=== PATIENT | female | born 1940 | race Caucasian/White ===

== ENCOUNTER 2017-08-27 18:13 | Inpatient (IN) | payer MEDICARE, MEDICAID ==
[~2017-08-27] VITALS: Ht 170.2 cm; Wt 65.1 kg
[~2017-08-27 18:13] MED LIST: ACET325T14 PO; ARIP10TA33 PO; LISI40TA PO; TEMA15CA6 PO
[2017-08-27] MEDS ORDERED: SODIUM CHLORIDE 0.9% 1,000 ML IV ONE (18:25)
[2017-08-27] MEDS ORDERED: SODIUM CHLORIDE FLUSH 10ML SYR IVF ONE (18:30)
[2017-08-27] MEDS ORDERED: SODIUM CHLORIDE 0.9% 1,000ML IVBOLUS ONE (18:30)
[2017-08-27] MEDS ORDERED: PLEASE ENTER HEIGHT AND WEIGHT MC SCH (19:00)
[2017-08-27 19:04] LABS: BASOPHILS # (AUTO) 0.09 x10^3/uL (0-0.1); BASOPHILS % (AUTO) 1 % (0-1); EOSINOPHILS # (AUTO) 0.35 x10^3/uL (0-0.4); EOSINOPHILS % (AUTO) 4 % (1-7); LYMPHOCYTES # (AUTO) 2.67 x10^3/uL (1-3.4); LYMPHOCYTES % (AUTO) 27 % (22-44); MD NO; MEAN CORPUSCULAR HEMOGLOBIN 31.7 pg (27.0-34.8); MEAN CORPUSCULAR HGB CONC 33.6 g/dL (32.4-35.8); MEAN CORPUSCULAR VOLUME 94.4 fL (80-100); MONOCYTES % (AUTO) 7 % (2-9); NEUTROPHILS # (AUTO) 6.08 x10^3/uL (1.8-6.8); NEUTROPHILS % (AUTO) 62 % (42-75); PLATELET COUNT 285 x10^3/uL (130-400); RED BLOOD COUNT 3.43 x10^6/uL (3.82-5.3); RED CELL DISTRIBUTION WIDTH 16.1 % (9.6-15.2)
[2017-08-27 19:16] LABS: ALANINE AMINOTRANSFERASE 23 U/L (12-78); ALBUMIN 3.2 g/dL (3.4-5.0); ANION GAP 10 mmol/L (5-15); CALCIUM 8.5 mg/dL (8.5-10.1); CHLORIDE 108 mmol/L (98-107)
[2017-08-27 19:21] LABS: ALKALINE PHOSPHATASE 108 U/L (45-117); BILIRUBIN,TOTAL 0.4 mg/dL (0.2-1.0); T4 (THYROXINE) 10.2 mcg/dL (4.8-13.9); TROPONIN I < 0.015 ng/mL (0.000-0.045)
[2017-08-27] MEDS ORDERED: SODIUM CHLORIDE FLUSH 10ML SYR IVF PRN (20:00)
[2017-08-27] MEDS ORDERED: ONDANSETRON 2MG/ML, 2ML IVPush PRN (20:30)
[2017-08-27 20:38] VITALS: BP 100/63
[2017-08-27] MEDS: SODIUM CHLORIDE 0.9% 1,000 ML IV SCH (20:48)
[2017-08-27 20:56] VITALS: BP 100/63
[2017-08-27] MEDS: TEMAZEPAM 15 MG CAPSULE PO PRN (21:48)
[2017-08-27] MEDS: ENOXAPARIN 40 MG/0.4 ML SQ SCH (21:48)
[2017-08-27] MEDS: ACETAMINOPHEN 325 MG TABLET PO PRN (21:48)
[2017-08-28 00:31] VITALS: BP 94/56
[2017-08-28] MEDS: SODIUM CHLORIDE 0.9% 1,000 ML IV SCH ×3 (04:07→21:10)
[2017-08-28 05:07] LABS: MICROSCOPIC INDICATED
[2017-08-28 05:08] LABS: CULTURE INDICATED? YES
[2017-08-28 06:21] VITALS: BP 108/51
[2017-08-28] MEDS: ARIPIPRAZOLE 10 MG TABLET PO SCH (10:10)
[2017-08-28 12:35] VITALS: BP 117/68
[2017-08-28 13:42] LABS: CLOSTRIDIUM DIFFICILE ANTIGEN NEGATIVE; CLOSTRIDIUM DIFFICILE TOXIN NEGATIVE (Negative)
[2017-08-28] MEDS: CEFTRIAXONE PMX 1GM/50ML 50 ML IV SCH (14:20)
[2017-08-28] MEDS: ACETAMINOPHEN 325 MG TABLET PO PRN (16:38)
[2017-08-28 19:06] VITALS: BP 101/62
[2017-08-28] MEDS: ENOXAPARIN 40 MG/0.4 ML SQ SCH (19:33)
[2017-08-28] MEDS: TEMAZEPAM 15 MG CAPSULE PO PRN (22:22)
[2017-08-29 01:18] VITALS: BP 106/57
[2017-08-29] MEDS: ACETAMINOPHEN 325 MG TABLET PO PRN ×3 (04:15→19:23)
[2017-08-29] MEDS: SODIUM CHLORIDE 0.9% 1,000 ML IV SCH (04:16)
[2017-08-29 04:25] VITALS: BP 118/59
[2017-08-29] MEDS ORDERED: FUROSEMIDE 20 MG/2 ML IV ONE ×2 (05:00→09:00)
[2017-08-29 05:27] LABS: ALBUMIN 2.5 g/dL (3.4-5.0); ANION GAP 4 mmol/L (5-15); CALCIUM 7.6 mg/dL (8.5-10.1); CHLORIDE 113 mmol/L (98-107); CREATININE 0.46 mg/dL (0.55-1.02)
[2017-08-29 05:31] LABS: FREE T4 (FREE THYROXINE) 1.11 ng/dL (0.76-1.46)
[2017-08-29 05:49] LABS: BASOPHILS # (AUTO) 0.04 x10^3/uL (0-0.1); BASOPHILS % (AUTO) 1 % (0-1); EOSINOPHILS # (AUTO) 0.55 x10^3/uL (0-0.4); EOSINOPHILS % (AUTO) 7 % (1-7); LYMPHOCYTES # (AUTO) 2.05 x10^3/uL (1-3.4); LYMPHOCYTES % (AUTO) 27 % (22-44); MD NO; MEAN CORPUSCULAR HGB CONC 33.4 g/dL (32.4-35.8); MEAN CORPUSCULAR VOLUME 95.8 fL (80-100); MEAN PLATELET VOLUME 9.4 fL (7.4-10.4); MONOCYTES # (AUTO) 0.63 x10^3/uL (0.2-0.8); MONOCYTES % (AUTO) 8 % (2-9); NEUTROPHILS # (AUTO) 4.28 x10^3/uL (1.8-6.8); NEUTROPHILS % (AUTO) 57 % (42-75); PLATELET COUNT 223 x10^3/uL (130-400); RED BLOOD COUNT 3.37 x10^6/uL (3.82-5.3); RED CELL DISTRIBUTION WIDTH 16.3 % (9.6-15.2)
[2017-08-29 07:34] VITALS: BP 137/78
[2017-08-29] MEDS: ARIPIPRAZOLE 10 MG TABLET PO SCH (08:15)
[2017-08-29] MEDS ORDERED: ALBUTEROL/IPRATROPIUM 2.5MG/0.5MG, 3 ML NPPB PRN (12:00)
[2017-08-29 12:29] VITALS: BP 114/65
[2017-08-29] MEDS: CEFTRIAXONE PMX 1GM/50ML 50 ML IV SCH (13:39)
[2017-08-29] MEDS: ALBUTEROL/IPRATROPIUM 2.5MG/0.5MG, 3 ML NPPB SCH ×2 (15:35→20:00)
[2017-08-29 19:16] VITALS: BP 143/74
[2017-08-29] MEDS: ENOXAPARIN 40 MG/0.4 ML SQ SCH (19:23)
[2017-08-29] MEDS: TEMAZEPAM 15 MG CAPSULE PO PRN (22:41)
[2017-08-30] MEDS: ACETAMINOPHEN 325 MG TABLET PO PRN ×5 (01:08→23:51)
[2017-08-30 01:15] VITALS: BP 147/79
[2017-08-30] MEDS: ALBUTEROL/IPRATROPIUM 2.5MG/0.5MG, 3 ML NPPB SCH ×4 (05:21→13:40)
[2017-08-30 06:50] VITALS: BP 125/68
[2017-08-30] MEDS: ARIPIPRAZOLE 10 MG TABLET PO SCH (08:56)
[2017-08-30 09:11] LABS: ALBUMIN 2.5 g/dL (3.4-5.0); ANION GAP 5 mmol/L (5-15); CALCIUM 7.8 mg/dL (8.5-10.1); CHLORIDE 106 mmol/L (98-107); CREATININE 0.69 mg/dL (0.55-1.02)
[2017-08-30] MEDS ORDERED: POTASSIUM CHLORIDE 20 MEQ TAB.ER.PRT PO ONE ×2 (10:30→13:00)
[2017-08-30] MEDS ORDERED: MAGNESIUM SULFATE IN WATER 50 ML IV ONE (10:30)
[2017-08-30 12:54] VITALS: BP 139/74
[2017-08-30] MEDS: CEFTRIAXONE PMX 1GM/50ML 50 ML IV SCH (14:52)
[2017-08-30 18:40] VITALS: BP 125/60
[2017-08-30] MEDS: ENOXAPARIN 40 MG/0.4 ML SQ SCH (19:14)
[2017-08-30] MEDS: TEMAZEPAM 15 MG CAPSULE PO PRN (22:09)
[2017-08-31 00:45] VITALS: BP 109/60
[2017-08-31 05:17] LABS: ALBUMIN 2.7 g/dL (3.4-5.0); ANION GAP 5 mmol/L (5-15); CALCIUM 8.4 mg/dL (8.5-10.1); CHLORIDE 108 mmol/L (98-107)
[2017-08-31 05:20] LABS: CREATININE 0.44 mg/dL (0.55-1.02)
[2017-08-31 06:36] VITALS: BP 123/71
[2017-08-31] MEDS: ARIPIPRAZOLE 10 MG TABLET PO SCH (08:46)
[2017-08-31] MEDS ORDERED: ARIPIPRAZOLE 10 MG TABLET PO ONE (10:30)
[2017-08-31 12:20] VITALS: BP 128/68
[2017-08-31] MEDS: ACETAMINOPHEN 325 MG TABLET PO PRN (16:26)
[2017-08-31 18:43] VITALS: BP 132/71
[2017-08-31] MEDS: ENOXAPARIN 40 MG/0.4 ML SQ SCH (20:58)
[2017-08-31] MEDS: MELATONIN 3 MG TABLET PO SCH (22:11)
[2017-09-01 01:04] VITALS: BP 140/77
[2017-09-01] MEDS: ACETAMINOPHEN 325 MG TABLET PO PRN ×2 (04:13→19:39)
[2017-09-01 05:14] LABS: ALBUMIN 2.7 g/dL (3.4-5.0); ANION GAP 5 mmol/L (5-15); CALCIUM 8.9 mg/dL (8.5-10.1); CHLORIDE 104 mmol/L (98-107)
[2017-09-01 05:16] LABS: CREATININE 0.62 mg/dL (0.55-1.02)
[2017-09-01 05:28] LABS: BASOPHILS # (AUTO) 0.03 x10^3/uL (0-0.1); BASOPHILS % (AUTO) 1 % (0-1); EOSINOPHILS # (AUTO) 0.43 x10^3/uL (0-0.4); EOSINOPHILS % (AUTO) 7 % (1-7); LYMPHOCYTES # (AUTO) 2.06 x10^3/uL (1-3.4); LYMPHOCYTES % (AUTO) 34 % (22-44); MD NO; MEAN CORPUSCULAR HGB CONC 33.3 g/dL (32.4-35.8); MEAN CORPUSCULAR VOLUME 95.9 fL (80-100); MEAN PLATELET VOLUME 9.6 fL (7.4-10.4); MONOCYTES # (AUTO) 0.42 x10^3/uL (0.2-0.8); MONOCYTES % (AUTO) 7 % (2-9); NEUTROPHILS # (AUTO) 3.17 x10^3/uL (1.8-6.8); NEUTROPHILS % (AUTO) 52 % (42-75); PLATELET COUNT 269 x10^3/uL (130-400); RED BLOOD COUNT 3.66 x10^6/uL (3.82-5.3); RED CELL DISTRIBUTION WIDTH 16.3 % (9.6-15.2)
[2017-09-01 06:52] VITALS: BP 102/64
[2017-09-01] MEDS: ARIPIPRAZOLE 10 MG TABLET PO SCH (08:57)
[2017-09-01] MEDS ORDERED: ARIPIPRAZOLE 10 MG TABLET PO ONE (11:00)
[2017-09-01 14:11] VITALS: BP 150/84
[2017-09-01 18:38] VITALS: BP 143/81
[2017-09-01] MEDS: ENOXAPARIN 40 MG/0.4 ML SQ SCH (19:48)
[2017-09-01] MEDS: MELATONIN 3 MG TABLET PO SCH (19:48)
[2017-09-02 00:44] VITALS: BP 129/66
[2017-09-02] MEDS: ACETAMINOPHEN 325 MG TABLET PO PRN ×3 (04:35→20:57)
[2017-09-02 05:25] LABS: ALBUMIN 2.5 g/dL (3.4-5.0); ANION GAP 3 mmol/L (5-15); BASOPHILS # (AUTO) 0.03 x10^3/uL (0-0.1); BASOPHILS % (AUTO) 0 % (0-1); CALCIUM 8.6 mg/dL (8.5-10.1); CHLORIDE 103 mmol/L (98-107); CREATININE 0.45 mg/dL (0.55-1.02); EOSINOPHILS % (AUTO) 6 % (1-7); LYMPHOCYTES # (AUTO) 2.04 x10^3/uL (1-3.4); LYMPHOCYTES % (AUTO) 30 % (22-44); MD NO; MEAN CORPUSCULAR HEMOGLOBIN 31.8 pg (27.0-34.8); MEAN CORPUSCULAR VOLUME 96.2 fL (80-100); MEAN PLATELET VOLUME 9.2 fL (7.4-10.4); MONOCYTES # (AUTO) 0.46 x10^3/uL (0.2-0.8); MONOCYTES % (AUTO) 7 % (2-9); NEUTROPHILS # (AUTO) 3.81 x10^3/uL (1.8-6.8); NEUTROPHILS % (AUTO) 57 % (42-75); PLATELET COUNT 255 x10^3/uL (130-400); RED BLOOD COUNT 3.62 x10^6/uL (3.82-5.3)
[2017-09-02 08:00] VITALS: BP 114/59
[2017-09-02] MEDS: ARIPIPRAZOLE 10 MG TABLET PO SCH (08:50)
[2017-09-02 12:50] VITALS: BP 117/73
[2017-09-02 19:12] VITALS: BP 102/63
[2017-09-02] MEDS: ENOXAPARIN 40 MG/0.4 ML SQ SCH (20:57)
[2017-09-02] MEDS: MELATONIN 3 MG TABLET PO SCH (20:57)
[2017-09-03 00:08] VITALS: BP 129/72
[2017-09-03] MEDS: ACETAMINOPHEN 325 MG TABLET PO PRN (05:44)
[2017-09-03 06:55] VITALS: BP 138/87
[2017-09-03] MEDS: ARIPIPRAZOLE 10 MG TABLET PO SCH (08:47)
[2017-09-03 12:50] VITALS: BP 113/73
[2017-09-03 18:35] VITALS: BP 139/77
[2017-09-03] MEDS: MELATONIN 3 MG TABLET PO SCH (20:47)
[2017-09-03] MEDS: ENOXAPARIN 40 MG/0.4 ML SQ SCH (20:48)
[2017-09-04 00:15] VITALS: BP 100/60
[2017-09-04] MEDS: ACETAMINOPHEN 325 MG TABLET PO PRN (00:18)
[2017-09-04 06:35] VITALS: BP 119/74
[2017-09-04] MEDS: ARIPIPRAZOLE 10 MG TABLET PO SCH (08:00)
[2017-09-04 12:06] VITALS: BP 128/85
[2017-09-04 18:42] VITALS: BP 111/66
[2017-09-04] MEDS: MELATONIN 3 MG TABLET PO SCH (20:28)
[2017-09-04] MEDS: ENOXAPARIN 40 MG/0.4 ML SQ SCH (20:28)
[2017-09-05] MEDS: ACETAMINOPHEN 325 MG TABLET PO PRN (00:23)
[2017-09-05 01:02] VITALS: BP 105/50
[2017-09-05 06:30] VITALS: BP 112/74
[2017-09-05] MEDS: ARIPIPRAZOLE 10 MG TABLET PO SCH (08:05)
[2017-09-05 12:00] VITALS: BP 135/68
[2017-09-05] MEDS ORDERED: ARIP10TA33 PO (12:13)
[2017-09-05] MEDS ORDERED: MELA3TAB2 PO (12:13)
== END 2017-09-05 13:30 | DRG 871 ==
LOC: ED 19:18 → EDIP 19:33 → 3NE 20:24
PROVIDERS: ADMIT Internal Medicine; ATTEND Internal Medicine
DX: A41.9 Sepsis, unspecified organism (principal); J96.01 Acute respiratory failure with hypoxia; R53.2 Functional quadriplegia; E43 Unspecified severe protein-calorie malnutrition; N39.0 Urinary tract infection, site not specified; F31.9 Bipolar disorder, unspecified; E86.9 Volume depletion, unspecified; F17.210 Nicotine dependence, cigarettes, uncomplicated; D64.9 Anemia, unspecified; E83.42 Hypomagnesemia; E86.0 Dehydration; E87.6 Hypokalemia; F22 Delusional disorders; F41.9 Anxiety disorder, unspecified; I10 Essential (primary) hypertension; M41.9 Scoliosis, unspecified; M54.5 Low back pain; G89.29 Other chronic pain; R82.71 Bacteriuria; L98.9 Disorder of the skin and subcutaneous tissue, unspecified; Z59.0 Homelessness; Z79.899 Other long term (current) drug therapy; Z85.828 Personal history of other malignant neoplasm of skin; Z90.710 Acquired absence of both cervix and uterus; Z68.22 Body mass index [BMI] 22.0-22.9, adult
CPT/HCPCS: 36415; 71045; 80048; 80053; 81001; 82040; 82962; 83735; 83880; 84100; 84436; 84439; 84443; 84484; 85025; 87086; 87324; 93005; 93970; 94640; 96360; J0696; J1650; J7620; J1940; J7030

== ENCOUNTER 2017-09-05 12:22 | Inpatient (IN) | payer MEDICARE, MEDICAID ==
[~2017-09-05] VITALS: Ht 170.2 cm; Wt 63.4 kg
[~2017-09-05 12:22] MED LIST changes: +MELA3TAB2 PO
[2017-09-05 13:50] VITALS: BP 147/84
[2017-09-05] MEDS ORDERED: ACETAMINOPHEN 325 MG TABLET PO PRN (15:00)
[2017-09-05 15:51] LABS: HCT (SEDRATE) 36.5 % (34.6-47.8)
[2017-09-05] MEDS: NICOTINE 7 MG/24 HR PATCH.TD24 TD SCH (16:00)
[2017-09-05 16:15] LABS: CHOL/HDL RATIO 3.8; LDL/HDL RATIO 2.1 (0.5-3.0)
[2017-09-05 19:48] VITALS: BP 157/80
[2017-09-05] MEDS: ACAMPROSATE 333 MG TABLET.DR PO SCH (20:45)
[2017-09-05] MEDS: DIVALPROEX 250 MG TAB.ER.24H PO SCH (20:45)
[2017-09-05] MEDS: ACETAMINOPHEN 325 MG TABLET PO PRN (22:46)
[2017-09-05] MEDS: MELATONIN 3 MG TABLET PO PRN (23:14)
[2017-09-06 08:01] VITALS: BP 94/60
[2017-09-06] MEDS: DIVALPROEX 250 MG TAB.ER.24H PO SCH ×2 (09:00→20:47)
[2017-09-06] MEDS: ARIPIPRAZOLE 5 MG TABLET PO SCH (09:00)
[2017-09-06] MEDS: ACAMPROSATE 333 MG TABLET.DR PO SCH ×2 (09:00→16:00)
[2017-09-06] MEDS: NICOTINE 7 MG/24 HR PATCH.TD24 TD SCH (16:00)
[2017-09-06 19:15] VITALS: BP 125/69
[2017-09-06] MEDS: NYSTATIN TOPICAL POWDER 15GM TP SCH (21:00)
[2017-09-07] MEDS: ACETAMINOPHEN 325 MG TABLET PO PRN (02:38)
[2017-09-07] MEDS: NYSTATIN TOPICAL POWDER 15GM TP SCH ×4 (06:00→20:16)
[2017-09-07 08:00] VITALS: BP 96/61
[2017-09-07] MEDS: ARIPIPRAZOLE 5 MG TABLET PO SCH (09:12)
[2017-09-07] MEDS: DIVALPROEX 250 MG TAB.ER.24H PO SCH ×2 (09:12→20:15)
[2017-09-07] MEDS: NICOTINE 7 MG/24 HR PATCH.TD24 TD SCH (16:21)
[2017-09-07 19:20] VITALS: BP 108/71
[2017-09-07] MEDS: MELATONIN 3 MG TABLET PO PRN (20:15)
[2017-09-08] MEDS: ACETAMINOPHEN 325 MG TABLET PO PRN (01:34)
[2017-09-08] MEDS: NYSTATIN TOPICAL POWDER 15GM TP SCH ×4 (05:37→20:26)
[2017-09-08 07:24] VITALS: BP 98/62
[2017-09-08] MEDS: DIVALPROEX 250 MG TAB.ER.24H PO SCH ×2 (08:38→20:25)
[2017-09-08] MEDS: ARIPIPRAZOLE 5 MG TABLET PO SCH (08:38)
[2017-09-08] MEDS: ALBUTEROL SULFATE 2.5 MG/3 ML NPPB PRN ×2 (14:15→23:17)
[2017-09-08] MEDS: NICOTINE 7 MG/24 HR PATCH.TD24 TD SCH (16:03)
[2017-09-08 16:10] VITALS: BP 89/64
[2017-09-08 19:16] VITALS: BP 111/68
[2017-09-08] MEDS: QUETIAPINE 25MG TABLET PO SCH (20:26)
[2017-09-09] MEDS: NYSTATIN TOPICAL POWDER 15GM TP SCH ×4 (05:57→21:50)
[2017-09-09] MEDS: ALBUTEROL SULFATE 2.5 MG/3 ML NPPB PRN (07:25)
[2017-09-09 08:26] VITALS: BP 109/66
[2017-09-09] MEDS: DIVALPROEX 250 MG TAB.ER.24H PO SCH ×2 (09:06→21:00)
[2017-09-09] MEDS: NICOTINE 7 MG/24 HR PATCH.TD24 TD SCH (16:11)
[2017-09-09 19:46] VITALS: BP 130/66
[2017-09-09] MEDS: QUETIAPINE 25MG TABLET PO SCH (21:21)
[2017-09-10] MEDS: ACETAMINOPHEN 325 MG TABLET PO PRN ×2 (00:15→21:00)
[2017-09-10] MEDS: ALBUTEROL SULFATE 2.5 MG/3 ML NPPB PRN (00:26)
[2017-09-10] MEDS: NYSTATIN TOPICAL POWDER 15GM TP SCH ×4 (05:52→21:00)
[2017-09-10] MEDS: DIVALPROEX 250 MG TAB.ER.24H PO SCH ×2 (08:49→21:34)
[2017-09-10 08:58] VITALS: BP 99/60
[2017-09-10] MEDS: NICOTINE 7 MG/24 HR PATCH.TD24 TD SCH (16:44)
[2017-09-10 19:19] VITALS: BP 117/75
[2017-09-10] MEDS: QUETIAPINE 25MG TABLET PO SCH (21:35)
[2017-09-11] MEDS: NYSTATIN TOPICAL POWDER 15GM TP SCH ×4 (06:00→20:48)
[2017-09-11 07:50] VITALS: BP 127/81
[2017-09-11] MEDS: DIVALPROEX 250 MG TAB.ER.24H PO SCH ×2 (08:42→20:47)
[2017-09-11] MEDS: ACETAMINOPHEN 325 MG TABLET PO PRN ×2 (14:57→20:50)
[2017-09-11 15:02] VITALS: BP 126/76
[2017-09-11] MEDS: NICOTINE 7 MG/24 HR PATCH.TD24 TD SCH (16:21)
[2017-09-11] MEDS: DOCUSATE 100 MG CAPSULE PO PRN (17:43)
[2017-09-11 19:20] VITALS: BP 100/63
[2017-09-11] MEDS: QUETIAPINE 25MG TABLET PO SCH (20:48)
[2017-09-12] MEDS: NYSTATIN TOPICAL POWDER 15GM TP SCH ×4 (05:25→21:46)
[2017-09-12 07:43] VITALS: BP 120/74
[2017-09-12] MEDS: DIVALPROEX 250 MG TAB.ER.24H PO SCH ×2 (08:24→21:46)
[2017-09-12] MEDS: NICOTINE 7 MG/24 HR PATCH.TD24 TD SCH (16:00)
[2017-09-12 20:22] VITALS: BP 122/71
[2017-09-12] MEDS: QUETIAPINE 25MG TABLET PO SCH (21:47)
[2017-09-12] MEDS: ACETAMINOPHEN 325 MG TABLET PO PRN (21:50)
[2017-09-13] MEDS: NYSTATIN TOPICAL POWDER 15GM TP SCH ×4 (06:26→21:12)
[2017-09-13] MEDS: LEVOTHYROXINE 25 MCG TABLET PO SCH (06:26)
[2017-09-13] MEDS: DIVALPROEX 250 MG TAB.ER.24H PO SCH ×2 (08:01→21:11)
[2017-09-13 09:27] VITALS: BP 100/61
[2017-09-13] MEDS: DOCUSATE 100 MG CAPSULE PO PRN (13:36)
[2017-09-13] MEDS: NICOTINE 7 MG/24 HR PATCH.TD24 TD SCH (16:00)
[2017-09-13 20:00] VITALS: BP 134/68
[2017-09-13] MEDS: QUETIAPINE 25MG TABLET PO SCH (21:11)
[2017-09-13] MEDS: ACETAMINOPHEN 325 MG TABLET PO PRN (21:12)
[2017-09-14] MEDS: NYSTATIN TOPICAL POWDER 15GM TP SCH ×4 (05:56→21:16)
[2017-09-14] MEDS: LEVOTHYROXINE 25 MCG TABLET PO SCH (05:56)
[2017-09-14] MEDS: ACETAMINOPHEN 325 MG TABLET PO PRN ×2 (05:56→21:14)
[2017-09-14 08:15] VITALS: BP 93/57
[2017-09-14] MEDS: DIVALPROEX 250 MG TAB.ER.24H PO SCH ×2 (09:14→21:14)
[2017-09-14] MEDS: DOCUSATE 100 MG CAPSULE PO PRN (12:09)
[2017-09-14] MEDS: NICOTINE 7 MG/24 HR PATCH.TD24 TD SCH (16:18)
[2017-09-14 19:51] VITALS: BP 133/83
[2017-09-14] MEDS: QUETIAPINE 25MG TABLET PO SCH (21:14)
[2017-09-15] MEDS: ACETAMINOPHEN 325 MG TABLET PO PRN (04:07)
[2017-09-15 07:15] VITALS: BP 115/67
[2017-09-15] MEDS: NYSTATIN TOPICAL POWDER 15GM TP SCH ×4 (07:55→21:00)
[2017-09-15] MEDS: LEVOTHYROXINE 25 MCG TABLET PO SCH (07:55)
[2017-09-15] MEDS: DIVALPROEX 250 MG TAB.ER.24H PO SCH ×2 (08:39→20:02)
[2017-09-15] MEDS: DOCUSATE 100 MG CAPSULE PO PRN (12:42)
[2017-09-15 12:49] VITALS: BP 122/76
[2017-09-15] MEDS: NICOTINE 7 MG/24 HR PATCH.TD24 TD SCH (16:03)
[2017-09-15 19:57] VITALS: BP 111/71
[2017-09-15] MEDS: QUETIAPINE 25MG TABLET PO SCH (20:02)
[2017-09-16] MEDS: ACETAMINOPHEN 325 MG TABLET PO PRN ×2 (01:44→21:39)
[2017-09-16] MEDS: LEVOTHYROXINE 25 MCG TABLET PO SCH (05:46)
[2017-09-16] MEDS: NYSTATIN TOPICAL POWDER 15GM TP SCH ×4 (06:00→21:00)
[2017-09-16 07:32] VITALS: BP 109/58
[2017-09-16] MEDS: DIVALPROEX 250 MG TAB.ER.24H PO SCH ×2 (08:18→21:37)
[2017-09-16] MEDS: DOCUSATE 100 MG CAPSULE PO PRN (08:18)
[2017-09-16] MEDS: NICOTINE 7 MG/24 HR PATCH.TD24 TD SCH (16:23)
[2017-09-16 20:00] VITALS: BP 129/85
[2017-09-16] MEDS: QUETIAPINE 25MG TABLET PO SCH (21:38)
[2017-09-17] MEDS: NYSTATIN TOPICAL POWDER 15GM TP SCH ×4 (05:48→21:25)
[2017-09-17] MEDS: LEVOTHYROXINE 25 MCG TABLET PO SCH (05:51)
[2017-09-17] MEDS: DIVALPROEX 250 MG TAB.ER.24H PO SCH ×2 (08:08→21:25)
[2017-09-17 08:10] VITALS: BP 93/52
[2017-09-17] MEDS: NICOTINE 7 MG/24 HR PATCH.TD24 TD SCH (16:08)
[2017-09-17 19:20] VITALS: BP 130/78
[2017-09-17] MEDS: QUETIAPINE 25MG TABLET PO SCH (21:25)
[2017-09-17] MEDS: DOCUSATE 100 MG CAPSULE PO PRN (21:26)
[2017-09-18] MEDS: LEVOTHYROXINE 25 MCG TABLET PO SCH (06:10)
[2017-09-18] MEDS: NYSTATIN TOPICAL POWDER 15GM TP SCH ×4 (06:25→21:33)
[2017-09-18 08:01] VITALS: BP 106/69
[2017-09-18] MEDS: DIVALPROEX 250 MG TAB.ER.24H PO SCH ×2 (09:01→21:33)
[2017-09-18] MEDS: DOCUSATE 100 MG CAPSULE PO PRN ×2 (09:01→22:16)
[2017-09-18] MEDS: NICOTINE 7 MG/24 HR PATCH.TD24 TD SCH (16:00)
[2017-09-18 19:40] VITALS: BP 121/65
[2017-09-18] MEDS: QUETIAPINE 25MG TABLET PO SCH (21:34)
[2017-09-18] MEDS: ACETAMINOPHEN 325 MG TABLET PO PRN (22:16)
[2017-09-19] MEDS: LEVOTHYROXINE 25 MCG TABLET PO SCH (06:00)
[2017-09-19] MEDS: NYSTATIN TOPICAL POWDER 15GM TP SCH ×4 (06:00→20:36)
[2017-09-19 07:30] VITALS: BP 123/74
[2017-09-19] MEDS: DIVALPROEX 250 MG TAB.ER.24H PO SCH ×2 (08:27→20:27)
[2017-09-19] MEDS: DOCUSATE 100 MG CAPSULE PO PRN (08:27)
[2017-09-19] MEDS: NICOTINE 7 MG/24 HR PATCH.TD24 TD SCH (15:36)
[2017-09-19 19:30] VITALS: BP 126/79
[2017-09-19] MEDS: QUETIAPINE 25MG TABLET PO SCH (20:27)
[2017-09-19] MEDS: DOCUSATE 100 MG CAPSULE PO SCH (20:27)
[2017-09-19] MEDS: ACETAMINOPHEN 325 MG TABLET PO PRN (21:32)
[2017-09-20] MEDS: LEVOTHYROXINE 25 MCG TABLET PO SCH (05:45)
[2017-09-20] MEDS: NYSTATIN TOPICAL POWDER 15GM TP SCH ×2 (05:46→11:26)
[2017-09-20 08:15] VITALS: BP 107/68
[2017-09-20] MEDS: DIVALPROEX 250 MG TAB.ER.24H PO SCH (08:49)
[2017-09-20] MEDS: DOCUSATE 100 MG CAPSULE PO SCH (08:50)
[2017-09-20] MEDS ORDERED: DIVA250T PO (11:24)
[2017-09-20] MEDS ORDERED: QUET25TA PO (11:24)
[2017-09-20] MEDS ORDERED: LEVO25TA2 PO (11:24)
[2017-09-20] MEDS ORDERED: THIA100T6 PO (11:55)
[2017-09-20] MEDS ORDERED: THIAMINE 100MG TABLET PO SCH (12:00)
== END 2017-09-20 13:20 | disposition home or self-care (01) | DRG 641 ==
LOC: 3E 14:02
PROVIDERS: ADMIT Psychiatry & Neurology Psychosomatic Medicine; ATTEND Psychiatry & Neurology Psychosomatic Medicine
DX: R62.7 Adult failure to thrive (principal); F31.2 Bipolar disorder, current episode manic severe with psychotic features; E44.0 Moderate protein-calorie malnutrition; E86.0 Dehydration; G47.00 Insomnia, unspecified; D64.9 Anemia, unspecified; E03.9 Hypothyroidism, unspecified; F10.20 Alcohol dependence, uncomplicated; F17.210 Nicotine dependence, cigarettes, uncomplicated; I10 Essential (primary) hypertension; G89.29 Other chronic pain; M41.9 Scoliosis, unspecified; Z59.0 Homelessness; Z79.899 Other long term (current) drug therapy; Z85.828 Personal history of other malignant neoplasm of skin; Z68.21 Body mass index [BMI] 21.0-21.9, adult
CPT/HCPCS: 36415; 71045; 80061; 80164; 82140; 82607; 82746; 84481; 85651; 86480; 86592; 94640; J7613; 92523-GN